=== PATIENT | male | born 1975 | race African-American/Black ===

== ENCOUNTER → 2019-01-30 12:04 | Outpatient (CLI) | payer OTHER | END | disposition home or self-care (01) | LOC: D.US 11:00 | PROVIDERS: ATTEND Nurse Practitioner Family | DX: S91.101D Unspecified open wound of right great toe without damage to nail, subsequent encounter (principal) ==

== ENCOUNTER 2019-02-06 02:25 | Inpatient (IN) | payer OTHER ==
[~2019-02-06] VITALS: Ht 182.9 cm; Wt 104.3 kg
[2019-02-06] MEDS ORDERED: INVOKAMET 150-1 EACH PO (02:35)
[2019-02-06] MEDS ORDERED: BENICAR HCT 201 EAC1 PO (02:35)
[2019-02-06] MEDS ORDERED: AUGMENTIN 875-11 TAB PO (02:35)
[2019-02-06] MEDS ORDERED: TRICOR48 MG PO (02:36)
[2019-02-06] MEDS ORDERED: NORVASC5 MG PO (02:36)
[2019-02-06] MEDS ORDERED: PIOGLITAZONE15 MG PO (02:37)
[2019-02-06 03:51] LABS: BASOPHILS 0.5 % (0-2); EOSINOPHILS 3.3 % (0-7); HEMATOCRIT 44.8 % (42.0-54.0); IMMATURE GRANULOCYTES 0.2 % (0-5); LYMPHOCYTES 18.7 % (15-50); MCH 31.1 pg (26.0-34.0); MCHC 35.7 g/dL (31.0-37.0); MCV 87.2 fL (80.0-100.0); MEAN PLATELET VOLUME 9.4 fL (7.4-10.4); MONOCYTES 8.6 % (2-11); NEUTROPHILS 68.7 % (40-80); PLATELET COUNT 284 10x3/uL (130-400); RBC 5.14 10x6/uL (4.20-6.10); RDW 11.9 % (11.5-14.5); WBC 8.5 10x3/uL (4.8-10.8)
[2019-02-06 03:59] LABS: ALBUMIN 3.3 g/dL (3.4-5.0); ANION GAP 9.9 mmol/L (8-16); BILIRUBIN - TOTAL 0.53 mg/dL (0.2-1.3); CREATININE - SERUM 1.2 mg/dL (0.6-1.3); POTASSIUM - SERUM 3.9 mmol/L (3.5-5.1); PROTEIN - SERUM 7.9 g/dL (6.4-8.2)
[2019-02-06 08:03] VITALS: BP 148/103; BMI 31.2
[2019-02-06 09:28] LABS: ERYTHROCYTE SEDIMENTATION RATE 52 mm/hr (0-15)
[2019-02-06 09:30] VITALS: BP 121/88
[2019-02-06 12:22] VITALS: BMI 31.2
[2019-02-06 14:01] VITALS: BP 99/60
[2019-02-06 14:23] VITALS: Ht 182.9 cm; Wt 104.3 kg
[2019-02-06 17:42] VITALS: BP 101/63
[2019-02-06 20:00] VITALS: BP 96/64
[2019-02-07] VITALS: BP 80/53
[2019-02-07 04:00] VITALS: BP 102/63
[2019-02-07 05:13] LABS: BASOPHILS 0.3 % (0-2); EOSINOPHILS 4.4 % (0-7); HEMATOCRIT 44.6 % (42.0-54.0); HEMOGLOBIN 15.4 g/dL (13.5-17.5); IMMATURE GRANULOCYTES 0.1 % (0-5); LYMPHOCYTES 36.6 % (15-50); MCH 30.8 pg (26.0-34.0); MCHC 34.5 g/dL (31.0-37.0); MEAN PLATELET VOLUME 9.3 fL (7.4-10.4); MONOCYTES 7.5 % (2-11); NEUTROPHILS 51.1 % (40-80); PLATELET COUNT 290 10x3/uL (130-400); RDW 12.2 % (11.5-14.5)
[2019-02-07 05:25] LABS: MCV 89.2 fL (80.0-100.0)
[2019-02-07 06:14] LABS: ALKALINE PHOSPHATASE 54 U/L (46-116); ALT (SGPT) 24 U/L (10-68); BILIRUBIN - TOTAL 0.72 mg/dL (0.2-1.3); CALCIUM 8.3 mg/dL (8.5-10.1); CARBON DIOXIDE 29.8 mmol/L (21.0-32.0); CHLORIDE - SERUM 102 mmol/L (98-107); POTASSIUM - SERUM 3.4 mmol/L (3.5-5.1); PROTEIN - SERUM 7.5 g/dL (6.4-8.2); SODIUM 141 mmol/L (136-145); UREA NITROGEN 11 mg/dL (7-18); eGFR NON AFRICAN AMERICAN 86 mL/min (90-120)
[2019-02-07 06:15] LABS: CALC OSMOLALITY 281 mosm/kg (275-300); GLUCOSE 140 mg/dL (74-106)
--- NOTE | 2019-02-07 07:43 | HP ---
PATIENT: KENYA CLARKE MEDICAL RECORD: [id number] ACCOUNT: [id number] LOCATION:[facility] [id number] : 73 ADMISSION DATE: 02/06/19 PCP: KARINA JOHNSON MD HISTORY AND PHYSICAL EXAMINATION REASON FOR ADMISSION: Pain and swelling in his right foot legs. HISTORY OF PRESENT ILLNESS: The patient is a 44-year-old -Russian male with history of type 2 diabetes mellitus for 2 years. He states he developed an ulcer above his right great toe about 3 months ago. He was referred to Dr. Ta[facility] clinic where he has been having intermittent debridements. He is on his third round of oral antibiotics, the last being Augmentin. He states on 01/29/2019 his foot and leg began to swell and become warm. He saw Dr. Johnson in the office last Tuesday. Venous ultrasound was reportedly negative. He was continued to have antibiotics and began having night sweats yesterday and came in last night because of increasing pain and swelling in the leg. He is unaware if he has had fever, but he has had night sweats. He denies cough, dysuria, nausea, or vomiting. PAST MEDICAL HISTORY: Type 2 diabetes mellitus times 2 years, poorly controlled; essential hypertension; hyperlipidemia. PAST SURGICAL HISTORY: Appendectomy. FAMILY HISTORY: Father's health is unknown. Mother, grandmother, and great grandmother all had stomach cancer. SOCIAL HISTORY: Nonsmoker, nondrinker. He is . 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 He is . His 3 grown children are in doctored school, one is a customer care team coach. He has 4 grandchildren. ALLERGIES: Unknown. HOME MEDICATIONS: Augmentin 875 b.i.d., TriCor 48 mg p.o. daily, Benicar HCTZ 20/12.5 one p.o. q.a.m., Norvasc 5 mg p.o. b.i.d., Invokamet 150/1000 one p.o. b.i.d. with meals, pioglitazone 50 mg p.o. daily. REVIEW OF SYSTEMS: GENERAL: He has been somewhat fatigued. No fever, but had night sweats for 2 days. HEENT: No recent visual change, sinus congestion, sore throat, or hearing difficulty. RESPIRATORY: No SOB or cough. CARDIAC: No palpitations or chest pain. GASTROINTESTINAL: No nausea, vomiting, change in stools or blood per rectum. He said he has had stomach now that has been evaluated by Dr. Johnson and has been referred for EGD and that has not been done currently. He denies any change in stools or blood per rectum. Positive family history for gastric carcinoma, strong in his mom's side. MUSCULOSKELETAL: He has some discomfort in his right great toe and foot, right lower leg below the knee. NEUROLOGICAL: Denies numbness, paresthesias, headaches, history of seizures or stroke. GENITOURINARY: Nocturia once nightly. HISTORY AND PHYSICAL [id number] KENYA CLARKE ENDOCRINE: Denies polyuria, polydipsia, heat or cold intolerance, but states that his blood sugar is never well controlled. PHYSICAL EXAMINATION: VITAL SIGNS: His temperature is 99.5, pulse is 110, respirations are 18, blood pressure 133/93 with a sat of 98% on room air. GENERAL: The patient is alert and oriented, in no acute distress. HEENT: Eyes are clear. Oropharynx is unremarkable. NECK: Supple. No bruits appreciated. CHEST: Clear. HEART: Tachycardic without murmur, gallop or rub. ABDOMEN: Soft, nontender. No organomegaly. Bowel sounds are active. GENITOURINARY: Deferred. EXTREMITIES: Left lower extremity is unremarkable. His right lower extremity shows right great toe was bandaged with an ulcer, plantar aspect. He has 2+ edema of the right foot and right lower extremity to the mid calf. It is warm to the touch and mildly erythematous. Homans sign is negative. NEUROLOGICAL: Grossly intact. X-ray of the right foot is suggestive of osteomyelitis and osteoarthritis of the right great toe. ASSESSMENT: 1. Diabetic right foot ulcer. 2. Cellulitis, right lower extremity. 3. Possible osteomyelitis. 4. Osteoarthritis. 5. Diabetes mellitus, poorly controlled with blood sugar over 400 on admission with normal CO2 level. Lactic acid is 2.9. The patient clinically is not septic. 6. Also history of hypertension and hyperlipidemia. PLAN: The patient will be admitted for IV antibiotics. Orthopedic surgical consult, control of his diabetes and MRI of his foot. TRANSINT:[id number] Voice Confirmation ID: [id number] DOCUMENT ID: [id number] ESTEPHANIA DOWNING MD at 0743 CC: [id number] DICTATION DATE: 02/06/1947 HOUSE WORKER GENERAL: 02/06/19 0822 ADM IN [place] [id number] [place] [id number]
[2019-02-07 08:29] VITALS: BP 98/70
[2019-02-07 13:26] VITALS: BP 108/72
[2019-02-07 16:32] VITALS: BP 122/85
[2019-02-07 21:41] VITALS: BP 128/90
[2019-02-08] VITALS (14 sets, daily range): BP systolic 102–137; BP diastolic 66–91
[2019-02-09] VITALS: BP 137/86; BP 145/100
[2019-02-09 04:00] VITALS: BP 139/83
[2019-02-09 07:13] LABS: BASOPHILS 0.4 % (0-2); EOSINOPHILS 2.8 % (0-7); HEMATOCRIT 38.4 % (42.0-54.0); HEMOGLOBIN 13.4 g/dL (13.5-17.5); IMMATURE GRANULOCYTES 0.1 % (0-5); MCH 30.5 pg (26.0-34.0); MCHC 34.9 g/dL (31.0-37.0); MCV 87.5 fL (80.0-100.0); MEAN PLATELET VOLUME 8.6 fL (7.4-10.4); MONOCYTES 5.7 % (2-11); RBC 4.39 10x6/uL (4.20-6.10); RDW 11.9 % (11.5-14.5); WBC 6.7 10x3/uL (4.8-10.8)
[2019-02-09 07:14] LABS: CALC OSMOLALITY 280 mosm/kg (275-300); CARBON DIOXIDE 30.3 mmol/L (21.0-32.0); CHLORIDE - SERUM 105 mmol/L (98-107); GLUCOSE 160 mg/dL (74-106); SODIUM 140 mmol/L (136-145); UREA NITROGEN 11 mg/dL (7-18); eGFR NON AFRICAN AMERICAN 86 mL/min (90-120)
[2019-02-09 07:34] LABS: PLATELET COUNT 216 10x3/uL (130-400)
[2019-02-09 08:30] VITALS: BP 128/68
[2019-02-09 12:32] VITALS: BP 139/87
--- NOTE | 2019-02-09 13:13 | MORECARE ---
CASE MANAGEMENT DISCHARGE SUMMARY PATIENT: KENYA CLARKE UNIT: [id number] ADM DATE: 02/06/19 AGE: 44 : 73 SEX: M ROOM/BED: D.2203 AUTHOR: CHI METZ PHYSICIAN: REFERRING PHYSICIAN: KARINA JOHNSON MD DATE OF SERVICE: 02/09/19 Discharge Plan Patient Name: KENYA CLARKE [facility] [facility] 1975 Planned Disposition: Home or Self Care Anticipated Discharge Date: Discharge Date: Expected LOS: Initial Reviewer: [email or web address] Initial Review Date: 02/06/2019 Generated: 02/09/19 2:13 pm DCPIA - Discharge Planning Initial Assessment Updated by [email or web address]: Mell Lemos on 02/09/19 1:12 pm * Is the patient Alert and Oriented? Yes * How many steps to enter\exit or inside your home? 10 * PCP ALEX * Pharmacy [facility] * Preadmission Environment Home with Family * ADLs Independent * Equipment None * List name and contact numbers for known caregivers / representatives who currently or will assist patient after discharge: DOMINGUEZ ZHU [phone] * Verbal permission to speak to the caregivers and representatives has been obtained from the patient. N/A * Community resources currently utilized None * Additional services required to return to the preadmission environment? Yes * Can the patient safely return to the preadmission environment? Yes * Has this patient been hospitalized within the prior 30 days at any hospital? No External Providers [facility] Next Contact Date: Service Request Date: Service Type: Resolution: Reviewer: Comments: Patient Name: KENYA CLARKE Page [phone] at 1313 All edits/amendments must be made on the electronic document DICTATION DATE: 02/09/19 131 DAYCARE DIRECTOR: BECKY 02/09/19 131 RPT#: [id number] DC DATE: STATUS: ADM IN [facility] [address] [place] [address] END OF REPORT
--- NOTE | 2019-02-09 13:21 | MORECARE ---
CASE MANAGEMENT DISCHARGE SUMMARY PATIENT: KENYA CLARKE UNIT: [id number] ADM DATE: 02/06/19 AGE: 44 : 73 SEX: M ROOM/BED: D.2203 AUTHOR: LASHAY,DOC PHYSICIAN: REFERRING PHYSICIAN: KARINA JOHNSON MD DATE OF SERVICE: 02/09/19 Discharge Plan Patient Name: KENYA CLARKE [facility] : 1975 Planned Disposition: Home or Self Care Anticipated Discharge Date: Discharge Date: Expected LOS: Initial Reviewer: [email or web address] Initial Review Date: 02/06/2019 Generated: 02/09/19 2:20 pm Comments DCP- Discharge Planning Updated by [email or web address]: Mell Lemos on 02/09/19 12:[address] Patient Name: KENYA CLARKE Admission Status: ER Accout number: [id number] Admission Date: 02-06-2019 : 1975 Admission Diagnosis: Attending: KARINA JOHNSON Current LOS: 3 Anticipated DC Date: Planned Disposition: Home or Self Care Primary Insurance: [id number] PPO Discharge Planning Comments: CM met with patient to complete initial dc planning assessment. CM educated patient on the CM role and verbal consent given by patient to complete assessment. Patient lives at home with his and is independent with his care. At discharge patient plans to return home and feels this is a safe discharge. CM discussed availability of home health, rehab services, and medical equipment. I have ordered him crutches from [facility] to be delivered here today. VINEET signed for DME. Patient denied known discharge needs at this time. CM will continue to follow and will assist as needed with dc plans/needs. Senior Supplier Quality Engineer: Mell Lemos DCPIA - Discharge Planning Initial Assessment Updated by [email or web address]: Mell Lemos on 02/09/19 1:12 pm * Is the patient Alert and Oriented? Yes * How many steps to enter\exit or inside your home? 10 * PCP ALEX * Pharmacy [facility] * Preadmission Environment Home with Family * ADLs Independent * Equipment None * List name and contact numbers for known caregivers / representatives who currently or will assist patient after discharge: DOMINGUEZ ZHU [phone] * Verbal permission to speak to the caregivers and representatives has been obtained from the patient. N/A * Community resources currently utilized None * Additional services required to return to the preadmission environment? Yes * Can the patient safely return to the preadmission environment? Yes * Has this patient been hospitalized within the prior 30 days at any hospital? No Last DP export: 02/09/19 12:13 p Patient Name: KENYA CLARKE Page [phone] at 1321 All edits/amendments must be made on the electronic document DICTATION DATE: 02/09/19 1320 WHARFMASTER: BECKY 02/09/19 1320 RPT#: [id number] DC DATE: STATUS: ADM IN [facility] [address] [place] [address] END OF REPORT
[2019-02-09] MEDS ORDERED: FLORAJEN3 CAPS460 MG PO (13:22)
[2019-02-09] MEDS ORDERED: HYDROCODON-ACE1 EAC7 PO (13:23)
[2019-02-09] MEDS ORDERED: METFORMIN HCL500 M1 PO (13:23)
[2019-02-09] MEDS ORDERED: LEVOFLOXACIN500 MG PO (13:23)
== END 2019-02-09 16:38 | disposition home or self-care (01) | DRG 617 ==
LOC: D.ER 02:25 → D.MS 05:01
PROVIDERS: Family Medicine; Orthopaedic Surgery; Podiatrist Foot & Ankle Surgery; ADMIT Family Medicine; ATTEND Family Medicine
PROC: 0Y6P0Z1 Detachment at Right 1st Toe, High, Open Approach (ICD-10-PCS; principal; 2019-02-08 14:15)
DX: E11.69 Type 2 diabetes mellitus with other specified complication (principal); M86.171 Other acute osteomyelitis, right ankle and foot; L03.031 Cellulitis of right toe; I10 Essential (primary) hypertension; E78.5 Hyperlipidemia, unspecified; E11.621 Type 2 diabetes mellitus with foot ulcer; L97.519 Non-pressure chronic ulcer of other part of right foot with unspecified severity

== ENCOUNTER → 2020-05-21 07:36 | Outpatient (CLI) | payer OTHER ==
[2019-02-06 14:23] VITALS: BMI 31.2
[~2020-05-21 07:36] MED LIST: AUGMENTIN 875-11 TAB PO; BENICAR HCT 201 EAC1 PO; FLORAJEN3 CAPS460 MG PO; HYDROCODON-ACE1 EAC7 PO; INVOKAMET 150-1 EACH PO; LEVOFLOXACIN500 MG PO; METFORMIN HCL500 M1 PO; NORVASC5 MG PO; PIOGLITAZONE15 MG PO; TRICOR48 MG PO
== END | disposition home or self-care (01) ==
LOC: D.US 07:36
PROVIDERS: ATTEND Family Medicine
DX: R10.10 Upper abdominal pain, unspecified (principal)

== ENCOUNTER 2020-09-30 13:08 | Observation (INO) | payer OTHER ==
[~2020-09-30] VITALS: Ht 182.9 cm; Wt 122.7 kg
[2020-09-30] MEDS ORDERED: TOUJEO SOL300 UNIT/1 SC (14:28)
[2020-09-30] MEDS ORDERED: BAYER CHEWABLE81 MG PO (14:31)
[2020-09-30 14:34] LABS: BASOPHILS 0.7 % (0-2); EOSINOPHILS 4.1 % (0-7); HEMATOCRIT 41.6 % (42.0-54.0); HEMOGLOBIN 13.8 g/dL (13.5-17.5); IMMATURE GRANULOCYTES 0.1 % (0-5); LYMPHOCYTE ABS# 2.02 10x3/uL (1.32-3.57); LYMPHOCYTES 27.8 % (15-50); MCH 29.2 pg (26.0-34.0); MCHC 33.2 g/dL (31.0-37.0); MCV 88.1 fL (80.0-100.0); MONOCYTES 5.6 % (2-11); NEUTROPHIL ABS# 4.48 10x3/uL (1.78-5.38); NEUTROPHILS 61.7 % (40-80); RBC 4.72 10x6/uL (4.20-6.10); RDW 12.2 % (11.5-14.5); WBC 7.3 10x3/uL (4.8-10.8)
[2020-09-30 14:36] VITALS: BP 128/76; BMI 36.7
[2020-09-30 14:38] LABS: PLATELET COUNT 266 10x3/uL (130-400)
[2020-09-30 14:44] LABS: ANION GAP 6.1 mmol/L (8-16); CALCIUM 9.1 mg/dL (8.5-10.1); CARBON DIOXIDE 34.1 mmol/L (21.0-32.0); CREATININE - SERUM 1.3 mg/dL (0.6-1.3); POTASSIUM - SERUM 4.2 mmol/L (3.5-5.1)
[2020-09-30 14:51] LABS: ALBUMIN 3.5 g/dL (3.4-5.0); BILIRUBIN - TOTAL 0.54 mg/dL (0.2-1.3); C-REACTIVE PROTEIN 1.6 mg/dL (0.0-0.9); PROTEIN - SERUM 7.6 g/dL (6.4-8.2)
[2020-09-30 16:02] LABS: ERYTHROCYTE SEDIMENTATION RATE 41 mm/hr (0-15)
[2020-09-30 20:00] VITALS: BP 128/86
[2020-10-01 02:02] VITALS: BP 115/75
[2020-10-01 06:16] VITALS: Ht 182.9 cm; Wt 122.7 kg
[2020-10-01 07:20] VITALS: BP 121/76
[2020-10-01 07:37] LABS: CALC OSMOLALITY 280 mosm/kg (275-300); CALCIUM 8.6 mg/dL (8.5-10.1); CARBON DIOXIDE 30.3 mmol/L (21.0-32.0); CHLORIDE - SERUM 105 mmol/L (98-107); CREATININE - SERUM 1.1 mg/dL (0.6-1.3); POTASSIUM - SERUM 3.7 mmol/L (3.5-5.1); SODIUM 141 mmol/L (136-145); UREA NITROGEN 15 mg/dL (7-18); eGFR NON AFRICAN AMERICAN 76 mL/min (90-120)
[2020-10-01 07:38] LABS: GLUCOSE 89 mg/dL (74-106)
[2020-10-01 08:11] LABS: BASOPHILS 0.5 % (0-2); EOSINOPHILS 3.2 % (0-7); HEMATOCRIT 38.5 % (42.0-54.0); HEMOGLOBIN 12.9 g/dL (13.5-17.5); IMMATURE GRANULOCYTES 0.3 % (0-5); LYMPHOCYTE ABS# 2.14 10x3/uL (1.32-3.57); LYMPHOCYTES 28.7 % (15-50); MCH 29.7 pg (26.0-34.0); MCHC 33.5 g/dL (31.0-37.0); MCV 88.5 fL (80.0-100.0); MEAN PLATELET VOLUME 9.1 fL (7.4-10.4); MONOCYTES 5.6 % (2-11); NEUTROPHILS 61.7 % (40-80); PLATELET COUNT 254 10x3/uL (130-400); RBC 4.35 10x6/uL (4.20-6.10); RDW 12.5 % (11.5-14.5); WBC 7.5 10x3/uL (4.8-10.8)
[2020-10-01] MEDS ORDERED: AUGMENTIN 875-11 TAB PO (11:34)
[2020-10-01] MEDS ORDERED: BACTRIM DS TAB1 EAC1 PO (11:34)
--- NOTE | 2020-10-01 14:16 | NUR ---
PIV REMOVED WITH NO COMPLICATIONS. DISCHARGE INSTRUCTIONS GIVEN TO PATIENT PRIOR TO PATIENT AMBULATING TO DISCHARGE AREA.
== END 2020-10-01 14:18 | disposition home or self-care (01) ==
LOC: D.MS 13:08 → OBSVTIME 14:43 → D.MS 10-01 14:18
PROVIDERS: ADMIT Family Medicine; ATTEND Family Medicine
DX: L03.116 Cellulitis of left lower limb (principal); E11.9 Type 2 diabetes mellitus without complications; M67.874 Other specified disorders of tendon, left ankle and foot; I10 Essential (primary) hypertension; Z79.84 Long term (current) use of oral hypoglycemic drugs